=== PATIENT | female | born 1940 | race American Indian/Alaskan Native ===

== ENCOUNTER 2018-05-19 19:28 | Emergency (ER) | payer MEDICARE ==
[2018-05-19 20:17] VITALS: BP 156/92
--- NOTE | 2018-05-19 20:24 | Emergency Department Report ---
HPI - General Chief Complaint: Psych Time Seen by Provider: 05/19/18 20:01 - HPI HPI: 77-year-old female presents to the emergency department with her daughter with complaint of an exacerbation of the patient's dementia to the point where the patient is walking out of her house consistently and wandering. Today, she snuck out of the house, despite family being there and went to a neighbor's house and called 911 for no apparent reason. She has been found by the police in the past wandering the streets. She technically lives alone, except for there is always someone who is watching her and stays there overnight. The daughter says that she has arranged for some type of placement into a facility come this Tuesday, but she is wondering what she should be doing over the weekend. She is concerned that the patient gets combative and is not redirectable. She also has a past medical history of hypertension, diabetes, hyperlipidemia, previous TIA and intermittent vertigo. The patient herself has no complaints at this time but is a poor historian. ED Past Medical Hx - Past Medical History Previous Medical History?: Yes Hx Hypertension: Yes Hx Diabetes: Yes Hx Dementia: Yes Additional medical history: elevated cholesterol, calcium on aortic valve, TIA x 2 - Surgical History Past Surgical History?: Yes Additional Surgical History: c- section x 3 - Social History Smoking Status: Unknown if ever smoked Substance Use Type: Prescribed - Medications Home Medications: Home Medications Medication Instructions Recorded Confirmed Last Taken Type AtorvaSTATin [Lipitor] 40 mg PO QDAY 07/29/17 07/29/17 Unknown History Insulin Aspart Protam & Aspart 10 units SC TIDAC 07/29/17 07/29/17 Unknown History [NovoLOG Mix 70-30 Flexpen] Insulin Glargine [Lantus VIAL] 30 units SC QHS 07/29/17 07/29/17 Unknown History Lisinopril/Hydrochlorothiazide 1 tab PO QDAY 07/29/17 07/29/17 Unknown History [Zestoretic 20-12.5 mg] Nitrofurantoin Monohyd/M-Cryst 100 mg PO BID #14 capsule 05/19/18 Unknown Rx [Macrobid 100 mg Capsule] ED Review of Systems ROS: Stated complaint: AMS Other details as noted in HPI Comment: Unobtainable due to pts medical conditions Physical Exam - Physical Exam Vital Signs: Vital Signs 05/19/18 20:03 Temperature 97.8 F Pulse Rate 84 Respiratory 16 Rate Blood Pressure 156/92 Blood Pressure 156/92 [Right] O2 Sat by Pulse 96 Oximetry ED Course Vital Signs 05/19/18 20:03 Temperature 97.8 F Pulse Rate 84 Respiratory 16 Rate Blood Pressure 156/92 Blood Pressure 156/92 [Right] O2 Sat by Pulse 96 Oximetry ED Medical Decision Making - Lab Data Result diagrams: 05/19/18 20:54 05/19/18 20:54 Critical care attestation.: If time is entered above; I have spent that time in minutes in the direct care of this critically ill patient, excluding procedure time. ED Disposition Clinical Impression: Dementia Qualifiers: Dementia type: unspecified type Dementia behavioral disturbance: without behavioral disturbance Qualified Code(s): F03.90 - Unspecified dementia without behavioral disturbance UTI (urinary tract infection) Qualifiers: Urinary tract infection type: acute cystitis Hematuria presence: without hematuria Qualified Code(s): N30.00 - Acute cystitis without hematuria Hypertension Qualifiers: Hypertension type: essential hypertension Qualified Code(s): I10 - Essential ( primary) hypertension Disposition: TO HOME OR SELFCARE Is pt being admited?: No Condition: Stable Instructions: Hypertension (ED), Urinary Tract Infection in Women (ED), Dementia (ED) Additional Instructions: Please proceed with your transfer arrangements for Tuesday to get the patient to your selected facility. It is always recommended to follow up with the primary care physician. I do recommend that a urinalysis is done in 5-7 days to make sure that the urinary tract infection is resolving. Make sure to take your blood pressure medications. Try and stay away from foods that are high in salt or any caffeinated products to help with the blood pressure. Return to the emergency Department with any worsening of her symptoms or any acute distress. Prescriptions: Nitrofurantoin Monohyd/M-Cryst [Macrobid 100 mg Capsule] 100 mg PO BID #14 capsule Referrals: JAY HERRERA MD [Primary Care Provider] - 3-5 Days Time of Disposition: 22:01
[2018-05-19 20:45] LABS: Bilirubin,Urine NEG (Negative); Blood,Urine NEG (Negative); Color,Urine Yellow (Yellow); Mucus,Urine 1+ /HPF; Protein,Urine <15 mg/dL mg/dL (Negative)
[2018-05-19 20:51] LABS: Amphetamine Screen,Urine PRESUMPTIVE NEGATIVE; Benzodiazepines Screen,Urine PRESUMPTIVE NEGATIVE; Cannabinoid Screen,Urine PRESUMPTIVE NEGATIVE; Cocaine Screen,Urine PRESUMPTIVE NEGATIVE; Methadone Screen,Urine PRESUMPTIVE NEGATIVE; Opiate Screen,Urine PRESUMPTIVE NEGATIVE
[2018-05-19] MEDS ORDERED: MACROBID PO ONE (21:00)
[2018-05-19 21:10] LABS: Basophils # (Auto) 0.1 K/mm3 (0.0-0.1); Eosinophils # (Auto) 0.3 K/mm3 (0.0-0.4); Eosinophils % (Auto) 2.9 % (0.0-4.3); Hematocrit 37.2 % (30.3-42.9); Hemoglobin 12.1 gm/dl (10.1-14.3); Lymphocytes # (Auto) 3.2 K/mm3 (1.2-5.4); Lymphocytes % (Auto) 31.1 % (13.4-35.0); Mean Corpuscular HGB Conc 33 % (30-34); Mean Corpuscular Volume 80 fl (79-97); Monocytes # (Auto) 0.5 K/mm3 (0.0-0.8); Monocytes % (Auto) 5.2 % (0.0-7.3); Platelet Count 301 K/mm3 (140-440); Red Blood Count 4.67 M/mm3 (3.65-5.03); Red Cell Distribution Width 15.2 % (13.2-15.2)
[2018-05-19 21:12] LABS: Mean Corpuscular Hemoglobin 26 pg (28-32)
[2018-05-19] MEDS ORDERED: DIFLUCAN PO ONE (21:19)
[2018-05-19 21:51] LABS: Calcium 9.4 mg/dL (8.4-10.2)
== END 2018-05-19 22:30 | disposition home or self-care (01) ==
LOC: ED 19:28
DX: F03.90 Unspecified dementia, unspecified severity, without behavioral disturbance, psychotic disturbance, mood disturbance, and anxiety (principal); N30.00 Acute cystitis without hematuria; I10 Essential (primary) hypertension; E11.9 Type 2 diabetes mellitus without complications
CPT/HCPCS: 36415; 80048; 80307; 81001; 82962; 85025; 99284; G0480; 80320

== ENCOUNTER 2019-09-30 07:43 | Observation (INO) | payer MEDICARE ==
--- NOTE | 2019-09-30 09:18 | Emergency Department Report ---
ED General Adult HPI - General Chief complaint: Syncope Stated complaint: SYNCOPE Time Seen by Provider: 09/30/19 08:31 Source: family, EMS Mode of arrival: Stretcher Limitations: Altered Mental Status - History of Present Illness Initial comments: 79-year-old -[place] female brought to the emergency room via EMS for a syncopal moment. Patient is in a nursing facility. It was reported that this morning patient had a syncopal moment. She is a past medical history of diabetes hypertension and vertigo. She had vomited 1. Patient reports she feels sleepy and hungry. Family members reports she's not had a vertigo episode in very long time. They do report that she has a history of carotic stenosis. She denies hitting her head. -: This morning Severity scale (0 -10): 0 Improves with: none Worsens with: none Associated Symptoms: syncope Treatments Prior to Arrival: none - Related Data Home Medications Medication Instructions Recorded Confirmed Last Taken AtorvaSTATin [Lipitor] 40 mg PO QDAY 07/29/17 07/29/17 Unknown Insulin Aspart Protam & Aspart 10 units SC TIDAC 07/29/17 07/29/17 Unknown [NovoLOG Mix 70-30 Flexpen] Insulin Glargine [Lantus VIAL] 30 units SC QHS 07/29/17 07/29/17 Unknown Lisinopril/Hydrochlorothiazide 1 tab PO QDAY 07/29/17 07/29/17 Unknown [Zestoretic 20-12.5 mg] Previous Rx's Medication Instructions Recorded Last Taken Type Fluconazole [Diflucan] 150 mg PO QDAY #1 tablet 05/19/18 Unknown Rx Nitrofurantoin Monohyd/M-Cryst 100 mg PO BID #14 capsule 05/19/18 Unknown Rx [Macrobid 100 mg Capsule] Allergies Allergy/AdvReac Type Severity Reaction Status Date / Time meperidine HCl [From Demerol] AdvReac Severe Vomiting Unverified 07/29/17 13:41 ED Review of Systems ROS: Stated complaint: SYNCOPE Other details as noted in HPI ED Past Medical Hx - Past Medical History Hx Hypertension: Yes Hx Diabetes: Yes Hx Dementia: Yes Additional medical history: elevated cholesterol, calcium on aortic valve, TIA x 2 - Surgical History Additional Surgical History: c- section x 3 - Social History Smoking Status: Unknown if ever smoked Substance Use Type: Prescribed - Medications Home Medications: Home Medications Medication Instructions Recorded Confirmed Last Taken Type AtorvaSTATin [Lipitor] 40 mg PO QDAY 07/29/17 07/29/17 Unknown History Insulin Aspart Protam & Aspart 10 units SC TIDAC 07/29/17 07/29/17 Unknown History [NovoLOG Mix 70-30 Flexpen] Insulin Glargine [Lantus VIAL] 30 units SC QHS 07/29/17 07/29/17 Unknown History Lisinopril/Hydrochlorothiazide 1 tab PO QDAY 07/29/17 07/29/17 Unknown History [Zestoretic 20-12.5 mg] Fluconazole [Diflucan] 150 mg PO QDAY #1 tablet 05/19/18 Unknown Rx Nitrofurantoin Monohyd/M-Cryst 100 mg PO BID #14 capsule 05/19/18 Unknown Rx [Macrobid 100 mg Capsule] ED Physical Exam - General Limitations: Altered Mental Status General appearance: alert, in no apparent distress - Head Head exam: Present: atraumatic, normocephalic - Eye Eye exam: Present: normal appearance - ENT ENT exam: Present: mucous membranes moist - Neck Neck exam: Present: normal inspection - Respiratory Respiratory exam: Present: normal lung sounds bilaterally. Absent: respiratory distress - Cardiovascular Cardiovascular Exam: Present: regular rate, normal rhythm. Absent: systolic murmur, diastolic murmur, rubs, gallop - GI/Abdominal GI/Abdominal exam: Present: soft, normal bowel sounds. Absent: distended, tenderness - Rectal Rectal exam: Present: deferred - Extremities Exam Extremities exam: Present: normal inspection, full ROM. Absent: tenderness - Expanded Neurological Exam Expanded Cranial nerves: EOM's Intact: Normal, Gag Reflex: Normal, Tongue Deviation: Normal, Nystagmus: Normal, Facial Sensation: Normal, Facial Palsy with Forehead Movement: Normal, Facial Palsy without Forehead Movement: Normal Cerebellar function: Finger to Nose: Normal, Heel to Chu: Normal, Romberg: Normal Upper motor neuron: Clyde Neglect: Normal, Pronator Drift: Normal, Babinski Sign: Normal, Sensory Extinction: Normal Sensory exam: Upper Extremity Light Touch: Normal, Upper Extremity Pin Prick: Normal, Upper Extremity Temperature: Normal, UE 2 Point Discrimination: Normal, Lower Extremity Light Touch: Normal, Lower Extremity Pin Prick: Normal, Lower Extremity Temperature: Normal, LE 2 Point Discrimination: Normal Motor strength exam: RUE: 4, LUE: 4, RLE: 4, LLE: 4 Best Eye Response ([place]): (4) open spontaneously Best Motor Response ([place]): (6) obeys commands Best Verbal Response ([place]): (5) oriented [place] Total: 15 - Psychiatric Psychiatric exam: Present: normal affect, normal mood - Skin Skin exam: Present: warm, dry, intact, normal color. Absent: rash ED Course Vital Signs 09/30/19 09/30/19 09/30/19 08:05 08:24 09:09 Pulse Rate 87 Respiratory 13 Rate Blood Pressure 125/53 Blood Pressure 125/63 [Left] O2 Sat by Pulse 52 L 100 Oximetry 09/30/19 09/30/19 09/30/19 10:01 11:01 11:39 Pulse Rate 93 H 95 H Respiratory 11 L 19 12 Rate Blood Pressure 125/53 144/77 Blood Pressure [Left] O2 Sat by Pulse 95 94 96 Oximetry 09/30/19 09/30/19 12:01 12:58 Pulse Rate 84 Respiratory 16 Rate Blood Pressure 121/77 Blood Pressure 121/77 [Left] O2 Sat by Pulse Oximetry ED Medical Decision Making - Lab Data Result diagrams: 09/30/19 11:39 09/30/19 13:03 Laboratory Tests 09/30/19 09/30/19 09/30/19 11:39 11:39 11:39 WBC 7.5 RBC 4.67 Hgb 12.2 Hct 37.8 MCV 81 MCH 26 L MCHC 32 RDW 15.4 H Plt Count 251 Lymph % (Auto) 28.9 [place] % (Auto) 2.9 Eos % (Auto) 1.9 Baso % (Auto) 0.7 Lymph # 2.2 [place] # 0.2 Eos # 0.1 Baso # 0.1 Seg Neutrophils % 65.6 Seg Neutrophils # 4.9 PT 14.7 INR 1.16 H APTT 23.1 L Sodium TNR Potassium TNR Chloride TNR Carbon Dioxide TNR Anion Gap TNR BUN TNR Creatinine TNR Estimated GFR TNR BUN/Creatinine Ratio TNR Glucose TNR Calcium TNR Total Bilirubin TNR AST TNR ALT TNR Alkaline Phosphatase TNR Total Protein TNR Albumin TNR Albumin/Globulin Ratio TNR TSH 09/30/19 09/30/19 11:39 13:03 WBC RBC Hgb Hct MCV MCH MCHC RDW Plt Count Lymph % (Auto) [place] % (Auto) Eos % (Auto) Baso % (Auto) Lymph # [place] # Eos # Baso # Seg Neutrophils % Seg Neutrophils # PT INR APTT Sodium 139 Potassium 4.1 Chloride 101.2 Carbon Dioxide 24 Anion Gap 18 BUN 21 H Creatinine 1.0 Estimated GFR > 60 BUN/Creatinine Ratio 21 Glucose 143 H Calcium 9.4 Total Bilirubin 0.20 AST 21 ALT 23 Alkaline Phosphatase 128 Total Protein 8.2 Albumin 3.8 L Albumin/Globulin Ratio 0.9 TSH 3.280 - Radiology Data Radiology results: report reviewed Patient: ALBERT SCOTT MR#: [id number] : 1940 Acct:[id number] Age/Sex: 79 / F ADM Date: 09/30/19 Loc: ED Attending Dr: Ordering Physician: ANTONIO ROBLES Date of Service: 09/30/19 Procedure(s): CT head/brain wo con Accession Number(s): [id number] cc: ANTONIO ROBLES Examination: CT of the head without contrast, 09/30/2019 Clinical information: Syncope Comparison: CT of the head, 07/29/2017 Technical: Multiple axial CT images of the head were obtained without intravenous contrast. Sagittal and coronal reformats were obtained. All CTs at this facility utilize dose reduction techniques including automated exposure control, iterative reconstruction and weight based dosing when appropriate to reduce patient radiation dose to as low as reasonable achi evable. Findings: There is no evidence of acute intracranial hemorrhage or large territorial infarct. Changes associated with chronic small vessel ischemic disease are again noted with mild generalized parenchymal volume loss. Nonspecific bilateral basal ganglia calcifications are again noted. The ventricular system remains within normal limits in size Evaluation of the calvarium demonstrates no acute bony abnormality. The visualized paranasal sinuses and mastoid air cells are clear. Impression: 1. No CT evidence of acute intracranial process. 2. Diffuse chronic and age-related changes as above. Signer Name: Antoinette Simmons MD Signed: 09/30/2019 9:54 AM Workstation Name: [id number] Transcribed By: EB Dictated By: Antoinette Simmons MD Electronically Authenticated By: Antoinette Simmons MD Signed Date/Time: 09/30/1955 DD/ TD/TT: - Medical Decision Making 79-year-old -[place] female brought to the emergency room via EMS for a syncopal moment. Patient is in a nursing facility. It was reported that this morning patient had a syncopal moment. She is a past medical history of diabetes hypertension and vertigo. She had vomited 1. Patient reports she feels sleepy and hungry. Family members reports she's not had a vertigo episode in very long time. They do report that she has a history of carotic stenosis. She denies hitting her head. Patient's labs and x-rays have returned with not much concern. Patient will be admitted to observation with Dr. Oseguera as admitting doctor. Critical care attestation.: If time is entered above; I have spent that time in minutes in the direct care of this critically ill patient, excluding procedure time. ED Disposition Clinical Impression: Syncopal episodes Disposition: OP ADMIT IP TO THIS HOSP Is pt being admited?: Yes Does the pt Need Aspirin: Yes Condition: Stable Instructions: Syncope (ED) Referrals: JAY HERRERA MD [Primary Care Provider] - 3-5 Days
[2019-09-30] MEDS ORDERED: INSULIN LISPRO 100 UNIT/ML SUB-Q ONE (09:35)
--- NOTE | 2019-09-30 09:52 | XRay Report ---
CHEST 1 VIEW, 09/30/2019 9:16 AM CLINICAL INFORMATION/INDICATION: Syncope COMPARISON: None FINDINGS: SUPPORT DEVICES: None. HEART: The cardiac silhouette is within normal limits in size. LUNGS/PLEURA: The lungs are clear of focal airspace disease or significant pleural effusion. ADDITIONAL FINDINGS: No additional acute findings. IMPRESSION: 1. No evidence of acute cardiopulmonary process. Signer Name: Antoinette Simmons MD Signed: 09/30/2019 9:48 AM Workstation Name: [email or web address]
--- NOTE | 2019-09-30 09:58 | Cat Scan Report ---
Examination: CT of the head without contrast, 09/30/2019 Clinical information: Syncope Comparison: CT of the head, 07/29/2017 Technical: Multiple axial CT images of the head were obtained without intravenous contrast. Sagittal and coronal reformats were obtained. All CTs at this facility utilize dose reduction techniques inc luding automated exposure control, iterative reconstruction and weight based dosing when appropriate to reduce patient radiation dose to as low as reasonable achievable. Findings: There is no evidence of acute intracranial hemorrhage or large territorial infarct. Changes associated with chronic small vessel ischemic disease are again noted with mild generalized parenchy mal volume loss. Nonspecific bilateral basal ganglia calcifications are again noted. The ventricular system remains within normal limits in size Evaluation of the calvarium demonstrates no acute bony abnormality. The visualized paranasal sinuses and mastoid air cells are clear. Impression: 1. No CT evidence of acute intracranial process. 2. Diffuse chronic and age-related changes as above. Signer Name: Antoinette Simmons MD Signed: 09/30/2019 9:54 AM Workstation Name: [id number]
[2019-09-30 12:04] LABS: Basophils # (Auto) 0.1 K/mm3 (0.0-0.1); Basophils % (Auto) 0.7 % (0.0-1.8); Eosinophils # (Auto) 0.1 K/mm3 (0.0-0.4); Eosinophils % (Auto) 1.9 % (0.0-4.3); Hematocrit 37.8 % (30.3-42.9); Hemoglobin 12.2 gm/dl (10.1-14.3); Lymphocytes # (Auto) 2.2 K/mm3 (1.2-5.4); Lymphocytes % (Auto) 28.9 % (13.4-35.0); Mean Corpuscular HGB Conc 32 % (30-34); Mean Corpuscular Volume 81 fl (79-97); Monocytes # (Auto) 0.2 K/mm3 (0.0-0.8); Monocytes % (Auto) 2.9 % (0.0-7.3); Platelet Count 251 K/mm3 (140-440); Red Blood Count 4.67 M/mm3 (3.65-5.03); Red Cell Distribution Width 15.4 % (13.2-15.2)
[2019-09-30 12:22] LABS: INR 1.16 (0.87-1.13)
[2019-09-30 12:23] LABS: BUN/Creatinine Ratio TNR; Blood Urea Nitrogen TNR mg/dL (7-17); Partial Thromboplastin Time 23.1 Sec. (24.2-36.6)
[2019-09-30 12:24] LABS: Alanine Aminotransferase TNR units/L (7-56); Albumin TNR g/dL (3.9-5); Calcium TNR mg/dL (8.4-10.2); Hemolysis Index TNR
[2019-09-30 13:40] LABS: Alanine Aminotransferase 23 units/L (7-56); Albumin 3.8 g/dL (3.9-5); BUN/Creatinine Ratio 21; Blood Urea Nitrogen 21 mg/dL (7-17); Calcium 9.4 mg/dL (8.4-10.2); Hemolysis Index 41
--- NOTE | 2019-09-30 13:59 | History and Physical Report ---
History of Present Illness Chief complaint: She passed out History of present illness: 79 YO Female Assisted Living Facility Resident with Dementia, HTN, DM, HLD, TIA, Vertigo presents to ED for evaluation. Pt is confused and exhibits tangential thinking and is unable to provide detailed history. Pt history provided by daughters who are at bedside during exam and interview. As per family, the patient experienced acute onset of dizziness which was followed by an episode of vomiting and subsequent loss consciousness this morning. EMS notified, and upon arrival the patient was found to be in distress and transported to [facility]. Pt seen and evaluated in ED and found to have Syncope, and Benign Positional Vertigo. Pt placed in observation status and admitted to [facility] unit. No further history obtainable. Prior admission on 07/29/17 reviewed. All listed medication reconciled at time of admission. Advanced care planning conducted in ED. Past History Past Medical History: other (see hpi) Past Surgical History: Social history: single. denies: smoking, alcohol abuse, prescription drug abuse Family history: hypertension Medications and Allergies Allergies Allergy/AdvReac Type Severity Reaction Status Date / Time meperidine HCl [From Demerol] AdvReac Severe Vomiting Unverified 07/29/17 13:41 Home Medications Medication Instructions Recorded Confirmed Last Taken Type AtorvaSTATin [Lipitor] 40 mg PO QDAY 07/29/17 07/29/17 Unknown History Insulin Aspart Protam & Aspart 10 units SC TIDAC 07/29/17 07/29/17 Unknown History [NovoLOG Mix 70-30 Flexpen] Insulin Glargine [Lantus VIAL] 30 units SC QHS 07/29/17 07/29/17 Unknown History Lisinopril/Hydrochlorothiazide 1 tab PO QDAY 07/29/17 07/29/17 Unknown History [Zestoretic 20-12.5 mg] Fluconazole [Diflucan] 150 mg PO QDAY #1 tablet 05/19/18 Unknown Rx Nitrofurantoin Monohyd/M-Cryst 100 mg PO BID #14 capsule 05/19/18 Unknown Rx [Macrobid 100 mg Capsule] Review of Systems ROS unobtainable: due to mental status Exam - Constitutional Vitals: Temp Pulse Resp BP Pulse Ox 84 16 121/77 96 09/30/19 12:01 09/30/19 12:01 09/30/19 12:58 09/30/19 11:39 General appearance: Present: mild distress - EENT Eyes: Present: PERRL ENT: hearing intact, clear oral mucosa - Neck Neck: Present: supple, normal ROM - Respiratory Respiratory effort: normal Respiratory: bilateral: CTA - Cardiovascular Heart Sounds: Present: S1 & S2. Absent: rub, click - Extremities Extremities: pulses symmetrical, No edema Peripheral Pulses: within normal limits - Abdominal General gastrointestinal: Present: soft, non-tender, non-distended, normal bowel sounds Female genitourinary: Present: normal - Integumentary Integumentary: Present: clear, warm, dry - Musculoskeletal Musculoskeletal: generalized weakness - Psychiatric Psychiatric: appropriate mood/affect, intact judgment & insight, other (confused, cognitive slowing) - Neurologic Neurologic: CNII-XII intact, moves all extremities Results - Labs CBC & Chem 7: 09/30/19 11:39 09/30/19 13:03 Labs: Abnormal lab results 09/30/19 09/30/19 09/30/19 Range/Units 11:39 11:39 13:03 MCH 26 L (28-32) pg RDW 15.4 H (13.2-15.2) % INR 1.16 H (0.87-1.13) APTT 23.1 L (24.2-36.6) Sec. BUN 21 H (7-17) mg/dL Glucose 143 H (65-100) mg/dL Albumin 3.8 L (3.9-5) g/dL Assessment and Plan - Patient Problems (1) Syncope Current Visit: Yes Status: Acute Qualifiers: Encounter type: initial encounter Plan to address problem: CT Head, Neuro check, fall precautions, aspiration precautions, IVF resuscitation therapy. Suspect secondary to vertigo. Pt asymptomatic at time of admission. (2) Vertigo Current Visit: No Status: Acute Plan to address problem: supportive care, monitor bp q shift, will treat with meclizine if recurrent symptoms. (3) HTN (hypertension) Current Visit: Yes Status: Acute Qualifiers: Hypertension type: essential hypertension Qualified Code(s): I10 - Essential (primary) hypertension Plan to address problem: PT has relative hypotension at time of admission. Hold antihypertensive therapy for SBP less than 150. (4) Diabetes Current Visit: No Status: Acute Plan to address problem: ADA diet, insulin, accu check, hypoglycemia protocol (5) DVT prophylaxis Current Visit: No Status: Acute Plan to address problem: SCD to BLE while in bed, prophylactic heparin
[2019-09-30] MEDS ORDERED: ALBUTEROL 2.5 MG/3 ML NEBU IH PRN (14:01)
[2019-09-30] MEDS ORDERED: ACETAMINOPHEN 325 MG TAB PO PRN (14:01)
[2019-09-30] MEDS ORDERED: ONDANSETRON 4 MG/2 ML INJ IV PRN (14:01)
[2019-09-30] MEDS ORDERED: MELATONIN 5 MG TAB PO PRN (21:55)
[2019-10-01] MEDS: INSULIN LISPRO 100 UNIT/ML SUB-Q SCH ×3 (01:01→11:30)
--- NOTE | 2019-10-01 10:27 | Discharge Summary ---
Providers - Providers Date of Admission: 09/30/19 14:01 Attending physician: CONSTANCE LEYVA MD 10/01/19 08:18 Occupational Therapy Evaluate and Treat [CONS] Routine Comment: Reason For Exam: VERTIGO 10/01/19 08:27 Physical Therapy Evaluation and Treat [CONS] Routine Comment: Reason For Exam: Weakness Primary care physician: JAY HERRERA Hospitalization Reason for admission: syncope Condition: Stable Hospital course: 79 YO Female Assisted Living Facility Resident with Dementia, HTN, DM, HLD, TIA, Vertigo presents to ED for evaluation. Pt is confused and exhibits tangential thinking and is unable to provide detailed history. Pt history provided by daughters who are at bedside during exam and interview. As per family, the pa felicia experienced acute onset of dizziness which was followed by an episode of vomiting and subsequent loss consciousness this morning. EMS notified, and upon arrival the patient was found to be in distress and transported to [facility]. Pt seen and evaluated in ED and found to have Syncope, and Benign Positional Vertigo. Pt placed in observation status and admitted to [facility] unit. No further history obtainable. Prior admission on 07/29/17 reviewed. All listed medication reconciled at time of admission. Advanced care planning conducted in ED. Called number and updated family Much improved. Discussed with daughter, patient benefited from Occupational therapy outpatient She will also follow with Cardiology, daughter chaya Javed has this arranged (1) Vertigo CT Head, Neuro check, fall precautions, aspiration precautions, IVF resuscitation therapy. Suspect secondary to vertigo. Pt asymptomatic at time of admission. Patient remained asymptomatic, Prior admission reviewed in detail, patient with similar episode in the past. Recommend outpatient follow up with cardiology and Neurology Occupational therapy outpatient WHICH has been (2) Syncope Current Visit: No Status: Acute Plan to address problem: supportive care, monitor bp q shift, will treat with meclizine if recurrent symptoms. (3) HTN (hypertension) PT has relative hypotension at time of admission. Hold antihypertensive therapy for SBP less than 150. (4) Diabetes ADA diet, insulin, accu check, hypoglycemia protocol Disposition: DC/TX-03 [facility] Time spent for discharge: 35 MINS Core Measure Documentation - Palliative Care Palliative Care/ Comfort Measures: Not Applicable - Core Measures Any of the following diagnoses?: none Exam - Constitutional Vitals: Temp Pulse Resp BP Pulse Ox 98.1 F 79 20 143/68 96 10/01/19 07:24 10/01/19 07:24 10/01/19 07:24 10/01/19 07:24 10/01/19 07:24 General appearance: Present: no acute distress, well-nourished - EENT Eyes: Present: PERRL, EOM intact ENT: hearing intact, clear oral mucosa - Neck Neck: Present: supple, normal ROM - Respiratory Respiratory: bilateral: CTA - Cardiovascular Rhythm: regular Heart Sounds: Present: S1 & S2. Absent: systolic murmur, diastolic murmur - Extremities Extremities: pulses intact, pulses symmetrical, No edema, normal temperature, normal color, Full ROM Peripheral Pulses: within normal limits - Abdominal General gastrointestinal: Present: soft, non-tender, non-distended, normal bowel sounds - Integumentary Integumentary: Present: clear, warm, dry - Musculoskeletal Musculoskeletal: strength equal bilaterally - Psychiatric Psychiatric: appropriate mood/affect, intact judgment & insight, memory intact, cooperative - Neurologic Neurologic: CNII-XII intact, moves all extremities - Allied Health Allied health notes reviewed: nursing Plan Activity: advance as tolerated, fall precautions Diet: low fat Care Plan Goals: fall precautions Plan of Treatment: continued management with cardiology and also occupation and physical therapy Follow up with: JAY HERRERA MD [Primary Care Provider] - 3-5 Days JONNY GREEN MD [Staff Physician] - 7 Days Prescriptions: Meclizine HCl 25 mg PO BID PRN #60 tab.chew PRN Reason: Vertigo Other Discharge Orders: Occupational Therapy (Amb) Location: None Selected Physicial Therapy (Amb) Location: None Selected
--- NOTE | 2019-10-01 12:23 | Vascular Lab Report ---
DUPLEX DOPPLER LOWER EXTREMITY VEINS, BILATERAL INDICATION: Bilateral leg pain. TECHNIQUE: Duplex doppler imaging was performed through the veins of both lower extremities using ve nous compression and other maneuvers. COMPARISON: No relevant prior imaging study available. FINDINGS: Right Common femoral vein: Negative. Right Superficial femoral vein: Negative. Right Popliteal vein: Negative. Right Calf veins: Negative. Left Common femoral vein: Negative. Left Superficial femoral vein: Negative. Left Popliteal vein: Negative. Left Calf veins: Negative. Additional findings: None.. IMPRESSION: No sonographic evidence for DVT in either lower extremity. Signer Name: Jluis Adhikari Jr, MD Signed: 10/01/2019 12:18 PM Workstation Name: [id number]
[2019-10-01 14:04] VITALS: BP 121/83
[2019-10-01] MEDS ORDERED: HEPARIN 5,000 UNIT/1 ML VIAL SUB-Q SCH (22:00)
== END 2019-10-01 16:15 ==
LOC: ED 07:43 → 2B-ACE 14:01
PROVIDERS: ADMIT Internal Medicine; ATTEND Internal Medicine
DX: R55 Syncope and collapse (principal); R42 Dizziness and giddiness; F03.90 Unspecified dementia, unspecified severity, without behavioral disturbance, psychotic disturbance, mood disturbance, and anxiety; I10 Essential (primary) hypertension; E11.9 Type 2 diabetes mellitus without complications; E78.5 Hyperlipidemia, unspecified; Z86.73 Personal history of transient ischemic attack (TIA), and cerebral infarction without residual deficits; Z79.4 Long term (current) use of insulin; Z79.899 Other long term (current) drug therapy; Z88.8 Allergy status to other drugs, medicaments and biological substances
CPT/HCPCS: 36415; 70450; 71045; 80053; 82962; 83880; 84443; 85025; 85379; 85610; 85730; 93005; 93010; 93306; 93970; 96372; 97116; 97161; 97165; 99284; A9270; G0378; J1815